=== PATIENT | female | born 1965 | race Caucasian/White ===

== ENCOUNTER 2017-07-21 09:28 | Outpatient (CLI) | payer BC, OTHER | END 2017-07-21 09:29 | disposition home or self-care (01) | LOC: BICMRI 09:28 | PROVIDERS: ATTEND Neurological Surgery | DX: M47.22 Other spondylosis with radiculopathy, cervical region (principal); Z98.1 Arthrodesis status | CPT/HCPCS: 72050; 72141 ==

== ENCOUNTER 2018-01-11 07:36 | Outpatient (CLI) | payer BC ==
--- NOTE | 2018-01-11 09:23 | CT ---
CT CERVICAL SPINE WITHOUT CONTRAST: Comparison: None. History: Neck pain that radiates down to the left arm with numbness and tingling. Technique: Multiple contiguous axial images were obtained in a CT of the cervical spine without contr ast. Sagittal and coronal reformats were performed. FINDINGS: The patient is status post anterior fusion of C4 through C6 with an anterior plate and screws. Disc s paces are seen in good position within the intervening disc spaces. The vertebral bodies demonstrate normal alignment without subluxation. A small osteophyte is seen projecting off the inferior endplate of C3. No perihardware lucency is identified. The prevertebral and paraspinal soft tissues are unrem arkable. No significant bony narrowing of the central canal is seen throughout the cervical spine. No bony trey rowing of the neural foramina is seen. No significant posterior facet arthrosis is seen. IMPRESSION: Post-surgical changes of the cervical spine without evidence of complication. POS: [facility]
== END 2018-01-11 07:37 | disposition home or self-care (01) ==
LOC: BICCT 07:36
PROVIDERS: ATTEND Orthopaedic Surgery
DX: M54.2 Cervicalgia (principal); Z98.890 Other specified postprocedural states
CPT/HCPCS: 72125

== ENCOUNTER 2019-02-01 07:10 | Outpatient (CLI) | payer BC ==
--- NOTE | 2019-02-01 08:46 | MRI ---
Cervical spine MRI without contrast: 02/01/2019 COMPARISON: 08/25/2012 HISTORY: Neck pain and left sided radiculopathy, cervical disc degeneration TECHNIQUE: Multiplanar multisequence MR imaging of the cervical spine without contrast FINDINGS: There is evidence of anterior discectomy and fusion at the C5-6 and C6-7 level. The sagittal STIR imaging demonstrates no focal area of osseous marrow edema. C2-3: There is fusion at the intervertebral disc and facet joint level at C2-3. No significant centra l canal or neural foraminal stenosis. C3-4: Mild disc space narrowing and disc desiccation. Minimal disc bulge with no central canal or angelica ral foraminal stenosis. C4-5: There is disc space narrowing and mild disc desiccation with mild disc bulge. No associated florencio tral canal or neural foraminal stenosis C5-6: No significant central canal or neural foraminal stenosis C6-7: No significant central canal or neural foraminal stenosis. C7-T1: Disc desiccation with mild disc bulge and small right paracentral disc protrusion. No signific ant central canal or neural foraminal stenosis. No focal area of abnormal signal intensity is identified within the cervical cord. IMPRESSION: Postoperative and degenerative change within the cervical spine as described above.
--- NOTE | 2019-02-01 09:46 | RAD ---
CERVICAL SPINE 4 VIEWS: Lateral views were obtained in neutral, flexion, and extension. INDICATION: Cervical disk degeneration. Cervical spondylosis. 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 Postop changes are noted with anterior plate and screws transfi ambreen C5, C6, and C7 with interbody implants. Partial interbody fusion. Prominent anterior osteophytes at C4. The disk spaces are preserved. Slight posterior listhesis at C4-5 with extension. POS: [facility]
== END 2019-02-01 07:11 | disposition home or self-care (01) ==
LOC: BICMRI 07:10
PROVIDERS: ATTEND Neurological Surgery
DX: M50.00 Cervical disc disorder with myelopathy, unspecified cervical region (principal); M47.12 Other spondylosis with myelopathy, cervical region; Z98.890 Other specified postprocedural states
CPT/HCPCS: 72050; 72141